=== PATIENT | male | born 1935 | race Caucasian/White ===

== ENCOUNTER 2021-05-02 10:45 | Emergency (ER) | payer MEDICARE ==
[~2021-05-02] VITALS: Ht 177.8 cm; Wt 88.5 kg
[~2021-05-02 10:45] MED LIST: ASPIR-TRIN325 MG PO; BISOPROLOL FUMAR5 MG PO; FLOMAX0.4 MG PO; LEVOTHYROXINE150 MCG PO
== END 2021-05-02 14:44 | disposition home or self-care (01) ==
LOC: ED 10:45
DX: U07.1 COVID-19 (principal); R09.02 Hypoxemia; Z79.82 Long term (current) use of aspirin; Z79.899 Other long term (current) drug therapy
CPT/HCPCS: 71045; 94640; 94664; C9803; J1885; J7030; Q0244; U0003